=== PATIENT | male | born 1960 | race Caucasian/White ===

== ENCOUNTER → 2023-09-03 | Outpatient (CLI) | payer OTHER | LOC: M PAIN 13:00 | PROVIDERS: ATTEND Nurse Practitioner Family | DX: M51.16 Intervertebral disc disorders with radiculopathy, lumbar region (principal); G89.29 Other chronic pain; Z88.0 Allergy status to penicillin; Z88.2 Allergy status to sulfonamides; Z79.84 Long term (current) use of oral hypoglycemic drugs; Z79.899 Other long term (current) drug therapy ==

== ENCOUNTER → 2023-10-02 | Outpatient (REF) | LOC: M PLAIMG 15:01 | PROVIDERS: ATTEND Internal Medicine | DX: R52 Pain, unspecified (principal) ==

== ENCOUNTER → 2023-12-19 | Outpatient (CLI) | payer MEDICAID, OTHER ==
[2023-12-19 18:48] LABS: FOLATE 12.8 NG/ML (>5.4)
== END ==
LOC: M PLALAB 13:38
PROVIDERS: ATTEND Psychiatry & Neurology Neurology
DX: G62.9 Polyneuropathy, unspecified (principal); E53.8 Deficiency of other specified B group vitamins

== ENCOUNTER → 2024-11-24 | Outpatient (CLI) | payer MEDICARE, MEDICAID ==
[2024-11-24 19:09] LABS: BASO # 0.2 10^3/uL (0.0-0.2); BASO % 1.3 % (0.0-1.0); EOS # 0.2 10^3/uL (0.0-0.5); EOS % 1.6 % (0.0-3.0); HEMATOCRIT 47.6 % (42.0-52.0); HEMOGLOBIN 15.8 g/dl (13.5-17.5); LYMPH # 2.4 10^3/uL (1.5-5.0); LYMPH % 20.3 % (24.0-44.0); MEAN CORPUSCULAR HGB CONC 33.2 g/dl (32.0-36.5); MEAN CORPUSCULAR VOLUME 90.3 fl (80.0-96.0); MONO % 8.3 % (2.0-8.0); NEUTROPHILS % 67.8 % (36.0-66.0); PLATELET COUNT, AUTOMATED 213 10^3/uL (150-450); RED BLOOD COUNT 5.27 10^6/uL (4.30-6.10); WHITE BLOOD COUNT 11.8 10^3/uL (4.0-10.0)
[2024-11-24 19:13] LABS: ERYTHROCYTE SEDIMENTATION RATE 20 mm/hr (0-20)
[2024-11-24 19:21] LABS: HEMOGLOBIN A1c 7.7 % (4.0-6.0)
[2024-11-24 19:33] LABS: ALBUMIN 3.6 G/DL (3.2-5.2); ALKALINE PHOSPHATASE 74 U/L (40-129); ALT/SGPT 22 U/L (7.0-40); AST/SGOT 17 U/L (<34); BILIRUBIN,TOTAL 0.5 MG/DL (0.3-1.2); BLOOD UREA NITROGEN 14 MG/DL (9-23); CALCIUM LEVEL 8.6 MG/DL (8.3-10.6); CARBON DIOXIDE LEVEL 27 MMOL/L (20-31); CHLORIDE LEVEL 108 MMOL/L (98-107); CREATININE FOR GFR 0.76 MG/DL (0.70-1.30); FOLATE 16.7 NG/ML (>5.4); FREE THYROXINE INDEX 3.2 % (1.4-3.8); GLOMERULAR FILTRATION RATE > 60.0 (>49); GLUCOSE, FASTING 120 MG/DL (74-106); POTASSIUM SERUM 4.4 MMOL/L (3.5-5.1); RHEUMATOID FACTOR QUANT 5.1 IU/ML (<14); SODIUM LEVEL 144 MMOL/L (136-145); T UPTAKE 39.6 % (22.5-37.0); TOTAL PROTEIN 6.7 G/DL (5.7-8.2); VITAMIN B12 LEVEL 1037 PG/ML (211-911)
[2024-11-24 19:34] LABS: THYROID STIMULATING HORMONE 0.981 uIU/ML (0.55-4.78)
[2024-11-26 09:27] LABS: T P ELECTROPHORESIS SO 6.7 g/dL (6.1-8.1)
[2024-11-27 06:46] LABS: ALBUMIN SPEP 3.9 g/dL (3.8-4.8); ALPHA-1-GLOBULINS SO 0.3 g/dL (0.2-0.3); ALPHA-2-GLOBULINS SO 0.9 g/dL (0.5-0.9); BETA 2 GLOBULIN 0.4 g/dL (0.2-0.5); BETA-GLOBULIN SO 0.4 g/dL (0.4-0.6); GAMMA GLOBULINS SO 0.9 g/dL (0.8-1.7)
[2024-11-27 14:32] LABS: ANA SCREEN, IFA NEGATIVE (NEGATIVE)
[2024-11-28 17:47] LABS: VITAMIN E(ALPHA TOCOPHEROL) 9.8 mg/L (5.7-19.9); VITAMIN E(GAMMA TOCOPHEROL) 1.3 mg/L (<=4.3)
[2024-11-30 17:01] LABS: VITAMIN B6,PYRIDOXAL PHOSPHATE 7.4 ng/mL (2.1-21.7)
[2024-12-01 07:51] LABS: VITAMIN B1 LEVEL WHOLE BLOOD 201 nmol/L (78-185)
== END ==
LOC: M PLALAB 14:25
PROVIDERS: ATTEND Psychiatry & Neurology Neurology
DX: E53.8 Deficiency of other specified B group vitamins (principal); E11.9 Type 2 diabetes mellitus without complications; E07.9 Disorder of thyroid, unspecified; R20.0 Anesthesia of skin